=== PATIENT | male | born 1990 | race Caucasian/White ===

== ENCOUNTER 2021-04-21 16:10 | Emergency (ER) | payer SELFPAY ==
[~2021-04-21] VITALS: Ht 172.7 cm; Wt 89.0 kg
[2021-04-21] MEDS ORDERED: IBUPROFEN 600MG TABLET PO ONE (17:15)
[2021-04-21] MEDS ORDERED: CEPH500C2 MT (17:17)
[2021-04-21 17:19] VITALS: BP 153/80
[2021-04-21] MEDS ORDERED: CEPHALEXIN 250MG CAPSULE PO ONE (20:30)
== END 2021-04-21 21:11 | disposition home or self-care (01) ==
LOC: ER 16:10
DX: L03.116 Cellulitis of left lower limb (principal); L03.115 Cellulitis of right lower limb; G89.29 Other chronic pain; M79.671 Pain in right foot; M79.672 Pain in left foot; I10 Essential (primary) hypertension; Z79.899 Other long term (current) drug therapy; F17.200 Nicotine dependence, unspecified, uncomplicated
CPT/HCPCS: 73630; 99283